=== PATIENT | female | born 1990 | race Caucasian/White ===

== ENCOUNTER 2017-09-09 17:16 | Emergency (ER) | payer SELFPAY ==
[~2017-09-09 17:16] MED LIST: DOCU-138 PO; IBUP-779 PO
== END 2017-09-09 19:10 | disposition left against medical advice (07) ==
LOC: ER 17:47
DX: K08.89 Other specified disorders of teeth and supporting structures (principal); Z53.21 Procedure and treatment not carried out due to patient leaving prior to being seen by health care provider